=== PATIENT | female | born 1930 | race Caucasian/White ===

== ENCOUNTER 2018-05-13 08:17 | Emergency (ER) | payer MEDICARE ==
[~2018-05-13 08:17] MED LIST: ATROPINE 1 MG/10 ML SYRINGE; CA CHLORIDE 10% 10 ML SYRINGE; EPINEPHrine 0.1 MG/ML SYG; ETOMIDATE 20 MG INJ; NA BICARBONATE 8.4% 50 ML SYG; SUCCINYLCHOLINE CHLORIDE 100 MG/5 ML SYG IV
[2018-05-13] MEDS ORDERED: NORepinephrine 8MG/250 ML (PMX 250 ML IV (08:25)
[2018-05-13] MEDS ORDERED: SODIUM CHLORIDE 0.9% 1L BAG IV* (08:25)
[2018-05-13] MEDS ORDERED: VANCOMYCIN 1 GM (PMX) 250 ML IVPB (08:30)
[2018-05-13] MEDS ORDERED: CEFEPIME 1GM/50 ML (PMX) 50 ML IVPB (08:30)
[2018-05-13 08:40] LABS: ABNORMAL IP MESSAGE 1; HEMATOCRIT 29.1 % (37.0-47.0); HEMOGLOBIN 8.7 g/dl (12.0-16.0); MEAN CORPUSCULAR HEMOGLOBIN 29.7 pg (29.0-33.0); MEAN CORPUSCULAR HGB CONC 29.9 g/dl (32.0-37.0); MEAN CORPUSCULAR VOLUME 99.3 fl (82.0-101.0); MEAN PLATELET VOLUME 11.7 fl (7.4-10.4); NUCLEATED RED BLOOD CELLS% 0.9 /100WBC (0.0-0.0); PLATELET COUNT 357 10^3/UL (140-415); RED BLOOD COUNT 2.93 10^6/ul (4.20-5.40); RED CELL DISTRIBUTION WIDTH 19.9 % (11.5-14.5)
[2018-05-13 08:40] LABS: WHITE BLOOD COUNT 26.4 10^3/ul (4.8-10.8)
[2018-05-13 08:59] LABS: ADD MAN DIFF? YES; ALANINE AMINOTRANSFERASE 29 IU/L (13-69); ALBUMIN 1.8 g/dl (3.3-4.9); ALBUMIN/GLOBULIN RATIO 0.75; ALKALINE PHOSPHATASE 331 IU/L (42-121); ANION GAP 15 (8-16); ASPARTATE AMINO TRANSFERASE 56 IU/L (15-46); BLOOD UREA NITROGEN 65 mg/dl (7-20); CALCIUM 6.8 mg/dl (8.4-10.2); CARBON DIOXIDE 23 mmol/L (21-31); CHLORIDE 97 mmol/L (97-110); CREATININE 1.25 mg/dl (0.44-1.00); GLUCOSE 239 mg/dl (70-220); LIPASE 325 U/L (23-300); POSITIVE DIFF @See below; SODIUM 129 mmol/L (135-144); TOTAL PROTEIN 4.2 g/dl (6.1-8.1)
[2018-05-13 09:00] LABS: INR 1.45; PROTIME 17.9 Sec (11.9-14.9); PT RATIO 1.4
[2018-05-13 09:11] LABS: TROPONIN-I < 0.012 ng/ml (0.000-0.120)
[2018-05-13 09:17] LABS: POTASSIUM 6.1 mmol/L (3.5-5.1)
[2018-05-13 09:25] LABS: PARTIAL THROMBOPLASTIN TIME 30.9 Sec (25.0-35.0)
[2018-05-13 09:25] LABS: LACTIC ACID 9.2 mmol/L (0.5-2.0)
[2018-05-13 10:46] LABS: ANISOCYTOSIS 1+ (0-0); BAND NEUTROPHILS #M 12.6 10^3/ul (0.0-0.6); BAND NEUTROPHILS % (M) 48 % (0-4); ERYTHROBLAST% (NRBC) (M) 1 % (0-0); LYMPHOCYTES #M 1.5 10^3/ul (0.8-2.9); LYMPHOCYTES % (M) 6 % (15-51); METAMYELOCYTES #M 0.7 10^3/ul (0.0-0.0); METAMYELOCYTES %M 3 % (0-0); MONOCYTE #M 2.3 10^3/ul (0.3-0.9); MONOCYTES % (M) 9 % (0-11); MYELOCYTES #M 0.2 10^3/ul (0.0-0.0); MYELOCYTES % (M) 1 % (0-0); PLATELET ESTIMATE NORMAL; SEG NEUT #M 11.8 10^3/ul (1.6-7.5); SEGMENTED NEUTROPHILS (M) % 32 % (39-77); SMUDGE%M 25 % (0-0)
== END 2018-05-13 11:29 | disposition expired ==
LOC: E/R 08:17
DX: J96.90 Respiratory failure, unspecified, unspecified whether with hypoxia or hypercapnia (principal); I46.9 Cardiac arrest, cause unspecified; I10 Essential (primary) hypertension
CPT/HCPCS: 31500; 36415; 80053; 82962; 83605; 83690; 84484; 85025; 85610; 85730; 86850; 86900; 86901; 92950; 93005; 94002; 99291-25